=== PATIENT | female | born 1975 | race Caucasian/White ===

== ENCOUNTER 2016-08-13 14:13 | Emergency (ER) | payer OTHER ==
--- NOTE | ~2016-08-13 | CR126 ---
[facility] Service of [facility] & [facility] RADIOLOGY TEXT RESULTS PATIENT: RAMU VEGA LOCATION: SED : 73 UNIT #: [id number] AGE: [address]: Ema Allen SEX: F ORDER DR: [id number] [address] [address] [id number] E MR#: [id number] #: [id number] NAME: RAMU VEGA : 1975 SEX: F STUDY DATE/TIME: 08/13/2016 14:32 UNIT: SED ROOM: STUDY DESCRIPTION: CR Foot Complete Min 3 View Lt Attending Physician: Ema Allen Pa-C Ordering Physician: Ramakrishna Not Listed Primary Care Physician: Darci Ramirez M.D. MEDICAL IMAGING REPORT This report is preliminary unless electronic signature is present. EXAM Left foot series 08/13/2016. HISTORY Pain, 2 weeks duration. No known injury. FINDINGS AP, lateral and oblique radiographs of the left foot are presented. No evidence of acute traumatic fracture or malalignment. 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 Joint spaces otherwise intact. There is a well corticated calcification measuring about 5 mm in maximum diameter along the dorsal aspect of the distal talus favored to reflect either chronic soft tissue calcification or sequelae of remote trauma. I do not believe this is acute in time course. There is a small plantar calcaneal spur. No acute-appearing soft tissue abnormality. Dictated by... Gianfranco Vazquez M.D. THIS IS AN ELECTRONICALLY VERIFIED REPORT Gianfranco Vazquez M.D. at 08/13/2016 7:48 PM BRAULIO/francisco javier TD: 08/13/2016 18:41 JOB #: [id number] MEDICAL IMAGING REPORT Page 1 of 1
[~2016-08-13 14:13] MED LIST: FISH OIL500 M1 PO; MULTI-VITAMIN1 TAB; MULTI-VITAMIN1 TAB PO
[2016-08-13] MEDS ORDERED: NO MEDICATIONS (14:15)
== END 2016-08-13 16:08 | disposition home or self-care (01) ==
LOC: SED 14:13
DX: M77.52 Other enthesopathy of left foot and ankle (principal)
CPT/HCPCS: 29540; 73630; 99283